=== PATIENT | male | born 1975 | race Caucasian/White ===

== ENCOUNTER 2018-04-21 08:29 | Day surgery (SDC) | payer MEDICAID ==
[2018-04-18 11:52] VITALS: BMI 34.8
[~2018-04-21 08:29] MED LIST: DEXAMETHASONE SOD PHOSPHATE 10 MG/ML 1 ML VIAL IV ONE; HYDROmorphone 0.5 MG/0.5 ML SYRINGE IVP PRN; LACTATED RINGERS 1,000 ML IV SCH; MIDAZOLAM (PF) 2 MG/2 ML VIAL IV PRN; ONDANSETRON 4 MG/2 ML VIAL IVP ONE; SCOPOLAMINE 1.5MG/72HR PATCH TRANSDERM ONE; ceFAZolin IN SWFI 2 GM/20 ML SYRINGE IVP ONE
[2018-04-21] MEDS ORDERED: fentaNYL (PF) 50 MCG/ML 2 ML AMP IVP ONE ×2 (08:56→09:08)
[2018-04-21] MEDS ORDERED: LIDOCAINE 1% INJ 10MG/ML (20 ML MDV) ONE (09:20)
[2018-04-21] MEDS ORDERED: HYDROmorphone (PF) 1 MG/ML ONE (09:20)
[2018-04-21] MEDS ORDERED: ROPIVACAINE 5 MG/ML 30 ML VIAL ONE (09:20)
[2018-04-21] MEDS ORDERED: MIDAZOLAM 2 MG/2 ML VIAL ONE (09:20)
[2018-04-21] MEDS ORDERED: PROPOFOL 10 MG/ML 20 ML VIAL IV ONE (09:20)
[2018-04-21] MEDS ORDERED: fentaNYL (PF) 50 MCG/ML 2 ML AMP ONE (09:20)
[2018-04-21] MEDS ORDERED: SODIUM CHLORIDE 0.9% 50 ML with ceFAZolin 2,000 MG IV ONE ×2 (09:30)
[2018-04-21] MEDS ORDERED: HYDROmorphone 1 MG/ML 1 ML SYRINGE IVP ONE (10:02)
[2018-04-21 11:07] VITALS: RESP 16; TEMP 96.9
--- NOTE | 2018-04-21 11:33 | P.ONQ ---
Anesthesiology Proc Note - PNB - Peripheral Nerve Block Performed Left Supraclavicular Single Time Out Performed: Yes Procedure Start Time: 10:50 Procedure Stop Time: 11:10 Indication: Acute Post-Operative Pain, Analgesia, Requested by physician Sedation Type: Sedate with meaningful contact maintained Preparation: Sterile Prep Position: Supine Catheter: None Needle Types: On-Q Needle Size: 100mm (4") Needle Gauge: 20 Technique: Ultrasound Injectate: 0.5% Ropivacaine (see comment for volume) Blood Aspirated: No Pain Paresthesia on Injection Noted: No Resistance on Injection: Normal Events: Uneventful and Well Tolerated (30ml total solution)
[2018-04-21] MEDS ORDERED: PROMETHAZINE INJ 25 MG/ML 1 ML VIAL IVPB ONE (12:04)
[2018-04-21 13:12] VITALS: BP 123/85; PULSE 83
--- NOTE | 2018-04-21 14:27 | XR ---
EXAMINATION TYPE: XR elbow limited LT DATE OF EXAM: 04/21/2018 COMPARISON: NONE HISTORY: Postsurgical TECHNIQUE: 2 views submitted. FINDINGS: Postsurgical changes appear in near-anatomic alignment. Osseous structures otherwise intact . IMPRESSION: Postop
--- NOTE | 2018-04-21 14:30 | FL ---
EXAMINATION TYPE: FL guidance operating room DATE OF EXAM: 04/21/2018 HISTORY: Flouroscopy time 25 seconds of fluoroscopy provided. IMPRESSION: 1. Fluoroscopy time.
--- NOTE | 2018-04-30 12:59 | P.OP ---
Date of Procedure: 04/21/18 Procedure(s) Performed: PREOPERATIVE DIAGNOSES: 1. Left elbow displaced transverse olecranon fracture POSTOPERATIVE DIAGNOSES: 1 Left elbow displaced transverse olecranon fracture PROCEDURES PERFORMED: 1. Open reduction and internal fixation olecranon fracture, left elbow ANESTHESIA: body designer: Eunice Lara PA-C (Assistance with: patient positioning, retraction, hemostasis, irrigation, fixation, repair, closure, dressing, splint) COMPLICATIONS: None ESTIMATED BLOOD LOSS: Less than 10 cc TOURNIQUET: 45 minutes DISPOSITION: To post-anesthesia care unit INDICATIONS: Efraín is a 42-year-old male with a fracture of the olecranon of the left elbow. This was due to a fall onto his elbow. The fracture is totally displaced but the elbow is stable. The fracture is in need of surgical fixation to optimize outcome. I have explained the details of this surgery thoroughly to the patient and also explained the potential risks and complications. These are inclusive of, but not limited to: bleeding, infection , scarring, discomfort, blood vessel and nerve damage, stiffness, weakness, need for further surgery, failure to relieve symptoms, persistence or worsening of problems, , and other risks. The patient is aware of these risks and agrees to proceed with surgery. The consent form has been signed. PROCEDURE: After appropriate consent was obtained, the patient was taken to the operating room and placed in the supine position. General anesthetic was administered, and after confirmation of such anesthesia, the patient was placed in the supine position. Care was taken to make sure that all pressure points were adequately padded. The left arm was placed over his chest with a bolster made of blankets so that the posterior aspect of the elbow was well exposed. Prepping and draping of the left upper extremity was performed in the usual aseptic fashion using Chloraprep. Tourniquet was applied to the upper arm and antibiotics were administered prior to tourniquet inflation. Time out was called, confirming patient identity, side, procedure, and administration of antibiotics. Incision was created posteriorly, avoiding the point of the olecranon. The incision was deepened into the olecranon bursa. Hemostasis was maintained using electrocautery. The bursal tissue showed hemorrhage from the fracture site, which was removed. Sharp dissection proceeded down to bone,where the periosteum was peeled back with an elevator for as much exposure as was necessary to expose the fracture site and perform the reduction and fixation. The fracture was gapped open with a dental pick and the interior of the fracture site was debrided of hematoma and any soft tissue interposition. The fracture was then reduced with the aid of a pointed reduction forcep and manual manipulation of the fracture. Anatomic reduction was achieved, as assessed by the use of C-arm imaging in both AP and lateral planes. The reduction forcep was then locked around the reduced fracture to hold it in place. Under C-arm guidance, two parallel 2 mm guide pins were then directed from the proximal fragment into the distal fragment at a slight angle to penetrate the anterior cortex of the ulna. The pin positions were adjusted as necessary to make sure that they were in satisfactory position. A 2 mm hole was then drilled transversely across the shaft of the ulna for placement of the 20 gauge tension band wire. This wire was brought through the prepared hole and into a figure-8 pattern around the dorsal aspect of the ulna and around the fixation pins. Provisional tightening of the tension band wire was performed. The K- wires were then backed out by 5 mm one at a time and bent and trimmed using wire cutters. The bend was placed so that the wire would capture the tension band as it was reinserted. The pins were then tamped back into position. Final tightening of the tension band was performed. The twisted end of the wire and the Fiberwire knot was placed on the radial side of the ulna and buried down next to the bone, beneath the muscle to lessen irritation. Final placement of hardware was checked with C-arm imaging and range of motion of the elbow was checked. There was full range of motion of the elbow with regard to flexion, extension, and pronation/supination without evidence of crepitus or mechanical block. The fracture site remained well reduced and stable. The area was thoroughly irrigated and final hemostasis was obtained with cautery. The subcutaneous tissues were closed with 2-0 Vicryl followed by 3-0 Monocryl for subcuticular stitch. Cyanoacrylate epidermal closure was placed. Sterile dressing was then placed, followed by long arm splinting with the elbow at 90 degrees and neutral rotation. Patient tolerated the procedure well and taken to recovery room in stable condition. Sponge and needle counts were correct.
== END 2018-04-21 13:51 | disposition home or self-care (01) ==
LOC: OR 08:29
PROVIDERS: ATTEND Orthopaedic Surgery
DX: S52.032A Displaced fracture of olecranon process with intraarticular extension of left ulna, initial encounter for closed fracture (principal); I10 Essential (primary) hypertension; Z79.891 Long term (current) use of opiate analgesic; Z79.1 Long term (current) use of non-steroidal anti-inflammatories (NSAID); Z87.891 Personal history of nicotine dependence; Z82.49 Family history of ischemic heart disease and other diseases of the circulatory system; W01.0XXA Fall on same level from slipping, tripping and stumbling without subsequent striking against object, initial encounter
CPT/HCPCS: 24685; 64415; 73070; J2250 ×2; J1100; J2550; J2405; J0690; J2001; J3010; J1170 ×2; J2795; J2704